=== PATIENT | female | born 1960 | race Caucasian/White ===

== ENCOUNTER 2019-12-29 06:36 | Inpatient (IN) ==
[2019-12-29] MEDS ORDERED: Ondansetron 4 MG/2 ML VIAL ONE (07:11)
[2019-12-29] MEDS ORDERED: *HR* Midazolam HCl 2 MG/2 ML VIAL ONE (07:11)
[2019-12-29] MEDS ORDERED: *HR* Propofol 200 MG/20 ML VIAL IVP ONE (07:11)
[2019-12-29] MEDS ORDERED: *HR* FentaNYL (PF) 100 MCG/2 ML VIAL ONE (07:11)
[2019-12-29] MEDS ORDERED: Dexamethasone 4 MG/ML VIAL ONE (07:11)
[2019-12-29] MEDS ORDERED: *HR* Rocuronium Bromide 50 MG/5 ML VIAL ONE (07:11)
[2019-12-29] MEDS ORDERED: *HR* Succinylcholine 200 MG/10 ML VIAL IVP ONE (07:11)
[2019-12-29] MEDS ORDERED: Lidocaine HCL 4 ML Topical Solution (Laryng-O-Jet Kit Sterile Pak) TP ONE (07:11)
[2019-12-29] MEDS ORDERED: Lidocaine -MPF 2% 2 ML VIAL ONE ×2 (07:11→07:33)
[2019-12-29] MEDS ORDERED: cefOXitin 2,000 MG in Water for inj. (sterile) 20 ML IVP ONE ×2 (07:50→08:30)
[2019-12-29] MEDS ORDERED: Ringers Solution, Lactated 1,000 ML IVC SCH (08:00)
[2019-12-29] MEDS ORDERED: *HR* HYDROmorphone PF 0.5 MG/0.5 ML SYRINGE IVP PRN (08:22)
[2019-12-29] MEDS ORDERED: *HR* OxyCODONE Immed Rel 5 MG TABLET PO PRN (08:22)
[2019-12-29] MEDS ORDERED: Ondansetron 4 MG/2 ML VIAL IVP ONE (08:22)
[2019-12-29] MEDS ORDERED: *HR* PHENYLEPHRINE 1,000 MCG/10 ML SYRINGE IVP ONE (09:04)
[2019-12-29] MEDS ORDERED: EPHEDrine 50 MG/ML VIAL ONE (09:07)
[2019-12-29] MEDS ORDERED: Ketorolac 30 MG/ML VIAL ONE (10:59)
[2019-12-29] MEDS ORDERED: Ondansetron 4 MG/2 ML VIAL IVP PRN (12:19)
[2019-12-29] MEDS ORDERED: Naloxone 0.4 MG/ML INJ IVP PRN (12:19)
[2019-12-29] MEDS: 0.9 % Sodium Chloride 1,000 ML IVC SCH (12:44)
[2019-12-29] MEDS: Ketorolac 15 MG/ML VIAL IVP SCH (17:26)
[2019-12-29] MEDS: *HR* Heparin 5,000 UNIT/ML VIAL SQ SCH (17:27)
[2019-12-29] MEDS ORDERED: *HR* Dextrose 50 % in Water (Syg) 50 ML SYRINGE IVP PRN (21:01)
[2019-12-29] MEDS ORDERED: Dextrose Gel 15 GM/37.5 ML TUBE PO PRN ×2 (21:01)
[2019-12-29] MEDS ORDERED: D5% in Water 1,000 ML IVC PRN (21:01)
[2019-12-29] MEDS: Ondansetron 4 MG/2 ML VIAL IVP PRN (21:05)
[2019-12-29] MEDS: tiZANidine 4 MG TABLET PO PRN (21:05)
[2019-12-29] MEDS: Gabapentin 300 MG CAPSULE PO SCH (21:05)
[2019-12-30] MEDS: Insulin LISPRO 300 UNITS/3 ML VIAL SQ SCH ×4 (00:12→18:16)
[2019-12-30] MEDS: Ketorolac 15 MG/ML VIAL IVP SCH ×4 (00:13→18:15)
[2019-12-30] MEDS: 0.9 % Sodium Chloride 1,000 ML IVC SCH (01:57)
[2019-12-30] MEDS: Ondansetron 4 MG/2 ML VIAL IVP PRN ×2 (05:52→19:32)
[2019-12-30] MEDS: *HR* Heparin 5,000 UNIT/ML VIAL SQ SCH ×2 (05:52→18:16)
[2019-12-30 05:57] LABS: Basophils % 0.1 %; Hematocrit 36.1 % (35.3-44.9); Immature Granulocytes % 0.3 % (0-4); Lymphocytes # 1.2 K/mcL (0.6-4.6); Lymphocytes % 17.2 %; Mean Corpuscular HGB Conc 31.6 g/dL (31.6-35.5); Mean Corpuscular Hemoglobin 30.7 pg (28.0-33.3); Mean Corpuscular Volume 97.3 fL (83.0-100.0); Monocytes # 0.5 K/mcL (0.0-1.3); Monocytes % 7.7 %; Platelet Count 105 K/mcL (140-400); Red Blood Count 3.71 M/mcL (3.82-4.97); Red Cell Distribution Width 13.9 % (11.5-14.5); Segmented Neutrophils % 74.7 %; White Blood Count 6.8 K/mcL (4.3-11.1)
[2019-12-30 05:58] LABS: Hemoglobin 11.4 g/dL (11.5-15.4)
[2019-12-30 06:21] LABS: BUN/Creatinine Ratio 20 (6-26); Blood Urea Nitrogen 19 mg/dL (8-23); Calcium 8.9 mg/dL (8.6-10.3); Carbon Dioxide 24 mEq/L (23-29); Chloride 104 mEq/L (98-107); Glucose 266 mg/dL (70-105); Osmolality,Calculated 294 (280-300); Potassium 4.2 mEq/L (3.5-5.1); Sodium 136 mEq/L (136-145); eGFR For African Americans > 60 (> 60); eGFR For Non-African Americans > 60 (> 60)
[2019-12-30] MEDS: Gabapentin 300 MG CAPSULE PO SCH ×3 (07:50→21:00)
[2019-12-30] MEDS ORDERED: Ipratropium/Albuterol Neb 3 ML IH PRN (08:41)
[2019-12-30] MEDS: Aspirin Enteric Coated 81 MG Tablet PO SCH (09:04)
[2019-12-30] MEDS: tiZANidine 4 MG TABLET PO PRN ×2 (09:04→19:43)
[2019-12-30] MEDS ORDERED: Acetaminophen IV 1,000 MG/100 ML INFUS..BTL IVPB ONE (09:54)
[2019-12-30] MEDS: Budesonide/Formoterol 160/4.5 1 PUFF INH IH SCH ×2 (11:04→19:57)
[2019-12-30] MEDS: Tiotropium 18 MCG inhalation IH SCH (11:05)
[2019-12-30] MEDS: Insulin DETEMIR 100 UNIT/ML X5UNITS SQ SCH (21:00)
[2019-12-31] MEDS: Ketorolac 15 MG/ML VIAL IVP SCH ×2 (00:04→05:41)
[2019-12-31] MEDS: Insulin LISPRO 300 UNITS/3 ML VIAL SQ SCH ×3 (00:17→12:13)
[2019-12-31] MEDS: *HR* Heparin 5,000 UNIT/ML VIAL SQ SCH (05:41)
[2019-12-31 06:46] VITALS: BP 90/54
[2019-12-31] MEDS: Aspirin Enteric Coated 81 MG Tablet PO SCH (07:29)
[2019-12-31] MEDS: tiZANidine 4 MG TABLET PO PRN (07:29)
[2019-12-31] MEDS: Gabapentin 300 MG CAPSULE PO SCH (07:29)
[2019-12-31] MEDS: Insulin DETEMIR 100 UNIT/ML X5UNITS SQ SCH (07:31)
[2019-12-31] MEDS: Budesonide/Formoterol 160/4.5 1 PUFF INH IH SCH (07:48)
[2019-12-31] MEDS: Tiotropium 18 MCG inhalation IH SCH (07:48)
[2019-12-31] MEDS ORDERED: Ibuprofen 800 MG TABLET PO SCH (09:03)
[2019-12-31] MEDS ORDERED: *HR* OxyCODONE Immed Rel 5 MG TABLET PO PRN (09:03)
[2019-12-31] MEDS ORDERED: Orphenadrine 60 MG/2 ML VIAL IM ONE (09:08)
[2019-12-31] MEDS ORDERED: Acetaminophen 325 MG TABLET PO SCH (12:00)
[2019-12-31] MEDS: Ondansetron 4 MG/2 ML VIAL IVP PRN (12:23)
== END 2019-12-31 13:55 | disposition home or self-care (01) | DRG 331 ==
LOC: SAMDAY 06:36 → 3ANU 12:39
PROVIDERS: ADMIT Surgery; ATTEND Surgery